=== PATIENT | male | born 1955 | race Caucasian/White ===

== ENCOUNTER 2017-12-28 15:04 | Observation (INO) | payer OTHER ==
[~2017-12-28] VITALS: Ht 175.3 cm; Wt 89.4 kg
[~2017-12-28 15:04] MED LIST: FLOMAX0.4 MG PO; MOTRIN600 MG PO; PERCOCET 5/31 TABLET PO
[2017-12-28 15:38] LABS: HEMATOCRIT 44.5 % (38.0-50.0); HEMOGLOBIN 15.4 G/DL (12.5-16.6); MCH 31.6 PG (29.0-34.0); MCHC 34.6 G/DL (30.0-36.0); MCV 91.2 FL (86-99); PLATELET COUNT 182 K/uL (156-360); RBC DIS.WIDTH-CV 12.6 % (11.8-14.6); RBC DIS.WIDTH-SD 41.8 % (39-53); RED BLOOD COUNT 4.88 M/uL (4.00-5.50); WHITE BLOOD COUNT 7.3 K/uL (4.1-10.2)
[2017-12-28 16:01] LABS: TROP-I INTERPRETATION NEGATIVE; TROPONIN-I < 0.01 ng/mL (0.0-0.30)
[2017-12-28 16:05] LABS: CHLORIDE 104 mEq/L (99-109); SODIUM 138 mEq/L (136-147)
[2017-12-28 16:07] LABS: GLUCOSE 115 mg/dL (70-99)
[2017-12-28 16:11] LABS: CREATININE 1.3 mg/dL (0.6-1.3); GFR ESTIMATE (CALCULATED) > 59 mL/min/ (58.99-99999)
[2017-12-28 16:12] LABS: UREA NITROGEN (BUN) 22 mg/dL (9-23)
[2017-12-28] MEDS ORDERED: LO-DOSE ASPIRIN81 M1 PO (17:41)
[2017-12-28] MEDS ORDERED: PROSCAR5 MG PO (17:41)
[2017-12-28] MEDS ORDERED: PROSTATE 2.4 C1 EACH PO (17:41)
[2017-12-28 21:42] LABS: TROP-I INTERPRETATION NEGATIVE; TROPONIN-I < 0.01 ng/mL (0.0-0.30)
[2017-12-28 23:53] VITALS: BP 110/60
[2017-12-29 03:40] VITALS: BP 119/72
[2017-12-29 05:19] LABS: BASOPHIL (%) 0.7 % (0-1); EOSINOPHIL (%) 2.2 % (0-5); EOSINOPHIL COUNT 0.1 K/uL (0-0.3); HEMATOCRIT 42.2 % (38.0-50.0); HEMOGLOBIN 14.1 G/DL (12.5-16.6); IMMATURE GRANULOCYTE (%) 0.4 % (0.0-0.7); LYMPHOCYTE (%) 28.9 % (15-42); LYMPHOCYTE COUNT 1.6 K/uL (1.0-2.8); MCH 30.6 PG (29.0-34.0); MCHC 33.4 G/DL (30.0-36.0); MCV 91.5 FL (86-99); MONOCYTE (%) 10.3 % (3-12); MONOCYTE COUNT 0.6 K/uL (0-0.8); NEUTROPHIL (%) 57.5 % (45-76); NEUTROPHIL COUNT 3.1 K/uL (1.8-6.4); PLATELET COUNT 176 K/uL (156-360); RBC DIS.WIDTH-CV 12.8 % (11.8-14.6); RBC DIS.WIDTH-SD 42.9 % (39-53); RED BLOOD COUNT 4.61 M/uL (4.00-5.50); WHITE BLOOD COUNT 5.4 K/uL (4.1-10.2)
[2017-12-29 05:34] LABS: TROP-I INTERPRETATION NEGATIVE; TROPONIN-I 0.01 ng/mL (0.0-0.30)
[2017-12-29 07:17] LABS: ALBUMIN 3.5 G/DL (3.2-4.8); ALKALINE PHOSPHATASE 29 IU/L (3-129); ALT (GPT) 15 IU/L (3-49); AST (GOT) 15 IU/L (2-34); CHLORIDE 108 MEQ/L (99-109); CREATININE 1.1 MG/DL (0.6-1.3); DIRECT BILIRUBIN 0.2 mg/dL (0.0-0.3); GFR ESTIMATE (CALCULATED) > 59 mL/min/ (58.99-99999); POTASSIUM 4.1 MEQ/L (3.7-5.4); SODIUM 141 MEQ/L (136-147); TOTAL PROTEIN 5.4 G/DL (6.4-8.3); UREA NITROGEN (BUN) 19 mg/dL (9-23)
[2017-12-29 07:30] LABS: GLUCOSE 79 mg/dL (70-99)
[2017-12-29 08:14] VITALS: BP 113/62
[2017-12-29 11:30] VITALS: BP 121/74
== END 2017-12-29 12:10 | disposition home or self-care (01) ==
LOC: EME 15:04 → 5WEST 19:50 → EDOF 19:50 → ENRESERV 19:51 → 5WEST 20:31
PROVIDERS: Emergency Medicine; Nurse Practitioner Adult Health
DX: R55 Syncope and collapse (principal); R00.1 Bradycardia, unspecified; Z87.442 Personal history of urinary calculi; Z79.82 Long term (current) use of aspirin
CPT/HCPCS: 70450; 70551; 71275; 80048; 80076; 84484; 85025; 85027; 93005; 93880; 99281; 99285; G0378; J7030